=== PATIENT | female | born 1995 | race Caucasian/White ===

== ENCOUNTER 2016-11-11 09:48 | Emergency (ER) | payer MEDICAID, MEDICARE ==
[~2016-11-11] VITALS: Ht 160 cm; Wt 86.0 kg
[2016-11-11 09:48] VITALS: BP 126/71; PULSE 85; RESP 18; TEMP 98.4; O2SAT 99
--- NOTE | 2016-11-11 10:18 | PD ---
HPI Chief Complaint: Wound/Suture/Staple Re-Check Time Seen by Provider: 10:12 Travel History International Travel<30 days: No Contact w/Intl Traveler<30days: No Traveled to known affect area: No History of Present Illness HPI 21-year-old female presents for reevaluation of incision sites done by Dr. Watkins , newspaper photo editor, to her left biceps area for attempted removal of her control. The doctor was unable to remove the control. She has follow-up appointment on Wednesday with the newspaper photo editor. A nurse friend of the patient told her that she should be reevaluated by a different provider. Reports pain to the area. Denies fever, vomiting. Symptoms are mild in severity. Has no other medical complaints. No other modifying factors or associated signs and symptoms. Review of Systems Except as stated in HPI: all other systems reviewed are Neg Physical Exam Narrative GENERAL: Well-nourished, well-developed female patient, in no acute distress SKIN: Warm and dry. Left biceps area with 2 incision sites with Steri-Strips intact; without erythema, edema, drainage. No signs of infection. HEAD: Atraumatic. Normocephalic. EYES: Pupils equal and round. No scleral icterus. No injection or drainage. ENT: Mucosa pink and moist. Airway patent. NECK: Trachea midline. CARDIOVASCULAR: Regular rate. RESPIRATORY: No accessory muscle use. GASTROINTESTINAL: Obese. MUSCULOSKELETAL: No obvious deformities. No clubbing. No cyanosis. No edema. NEUROLOGICAL: Awake and alert. Oriented 3. No obvious cranial nerve deficits. Motor grossly within normal limits. Normal speech. PSYCHIATRIC: Appropriate mood and affect; insight and judgment normal. Data Data Last Documented VS Vital Signs Date Time Temp Pulse Resp B/P (MAP) Pulse Ox O2 Delivery O2 Flow Rate FiO2 11/11/16 09:48 98.4 85 18 126/71 (89) 99 Room Air MDM Medical Screen Exam Complete: Yes Emergency Medical Condition: No Differential Diagnosis Wound recheck, medical clearance Narrative Course 21-year-old female presents for reevaluation of left biceps area after 2 incisions were made in an attempt to remove her control by Dr. Watkins, newspaper photo editor, on Wednesday. There are no signs of infection. The patient has a follow-up appointment on Wednesday. Patient is afebrile and nontoxic-appearing. Denies fever, vomiting. The patient to follow up on Wednesday of follow-up appointment. Vital signs are stable and the patient is stable for outpatient follow-up and treatment. The patient has no urgent or emergent medical complaints. There is no emergent or urgent medical need at this time. I instructed the patient to follow up with their primary care provider. A medical screening exam was performed: At the time of evaluation the presenting medical condition was determined not to be of an emergent nature. The patient was given the option of receiving additional care, but declined. Patient was given options for additional community resources from which to obtain care. The Patient Has Been advised to seek medical attention for their presenting complaint. The patient has been advised to return to the ER at any time if an emergent condition develops. Primary Impression: Encounter for medical screening examination Condition: Stable Iva Nieves [employer] Nov 11, 2016 10:18
== END 2016-11-11 10:36 | disposition left against medical advice (07) ==
LOC: NEPK 09:48
DX: Z51.89 Encounter for other specified aftercare (principal); Z97.5 Presence of (intrauterine) contraceptive device
CPT/HCPCS: 99281